=== PATIENT | male | born 1960 | race Caucasian/White ===

== ENCOUNTER 2017-04-17 17:44 | Emergency (ER) | payer OTHER ==
[~2017-04-17] VITALS: Ht 172.7 cm; Wt 61.5 kg
[~2017-04-17 17:44] MED LIST changes: -*ONDANSETRON 4 MG VIAL PERIprocedural Use ONLY ONE; -*morphine SULFATE 8 MG/ML PERIprocedure ONLY ONE; -BELLADONNA ALKALOIDS/OPIUM 60 MG SUPP RECTAL ONE; -CHLORHEXIDINE GLUCONATE 2 % 1 PACK (2 CLOTHS) TOPICAL PRN; -DEXAMETHASONE SOD PHOS 4 MG/ML VIAL ONE; -DO NOT ADM ANY ANTICOAGULANT DRUGS PRN; -FAMOTIDINE 20 MG/2 ML VIAL ONE; -INSULIN HUMAN REGULAR 1,000 UNITS/10 ML VIAL SQ PRN; -LACTATED RINGER'S 1000 ML INJ 1,000 ML IV ONE; -LACTATED RINGER'S 1000 ML IV PRN; -METOPROLOL TARTRATE 25 MG TAB PO PRN; -MIDAZOLAM HCL 2 MG/2 ML VIAL ONE; -NEOSTIGMINE 3 MG/3 ML SYR IV ONE; -ONDANSETRON HCL 4 MG/2 ML VIAL IV PUSH ONE; -ONDANSETRON HCL 4 MG/2 ML VIAL IV PUSH PRN; -PHENYLEPH/NS 1000 MCG/10 ML SYR IV ONE; -POVIDONE IODINE 5% (ANTISEPSIS KIT) 4 APPLICATIONS EACH NARE PRN; -PROPOFOL 200 MG/20 ML AMP IV ONE; -SODIUM CHLORID 0.9% 500 ML IV PRN; -ceFAZolin 1,000 MG/NS 100 ML IV SCH; -ePHEDrine/NS 25 MG/5 ML SYR IV ONE; -fentaNYL CITRATE 250 MCG/5 ML AMP ONE; -oxyCODONE/ACETAMINOPHEN 5 MG/325 MG TAB PO PRN
[2017-04-17 17:48] VITALS: BP 94/69; PULSE 116; RESP 20; TEMP 97.7; O2SAT 95
--- NOTE | 2017-04-17 17:55 | PD ---
Physical Exam Time Seen by Provider: 17:49 Narrative 57yo M requesting help to have his leg catheter bag put back on. He had a bladder mass removed today and said he was "half out of it" when they gave him instructions. He is also asking how to drain the urine from the bag. He has no other medical complaints. Patient seen in triage. VS reviewed. Awaiting bed placement. Data Data Last Documented VS Vital Signs Date Time Temp Pulse Resp B/P Pulse Ox O2 Delivery O2 Flow Rate FiO2 04/17/17 17:48 97.7 116 20 94/69 95 Room Air [facility] Supervised Visit with ZULEYKA: Salome Zhang Apr 17, 2017 17:55
--- NOTE | 2017-04-17 18:11 | PD ---
HPI Chief Complaint: Medical Clearance Time Seen by Provider: 18:07 Travel History International Travel<30 days: No Contact w/Intl Traveler<30days: No Traveled to known affect area: No History of Present Illness HPI 57-year-old male presents to the emergency department with problems with his Henderson catheter and bag. Patient had a urinary procedure this morning, with urinary tumor from his bladder. Patient states he does not recall any of the patient instructions for his Henderson catheter care at that time. He states he attempted to change the bag earlier to a larger leg bag, and was unable to place the Henderson back on. He is unsure how to drain the Henderson bag at this time. He has no other acute issues at this time. He has no known drug allergies. PFSH Past Medical History Cancer: No Cardiovascular Problems: No Diabetes: Yes (type II) Endocrine: No Genitourinary: Yes (bladder tumor) Hepatitis: No Hiatal Hernia: No Immune Disorder: No Musculoskeletal: No Neurologic: No Psychiatric: No Respiratory: No Thyroid Disease: No Past Surgical History Abdominal Surgery: Yes (pyloric stenosis at ) AICD: No Cardiac Surgery: No Ear Surgery: No Endocrine Surgery: No Eye Surgery: Yes (corrective cross eye, bilat cataract) Genitourinary Surgery: No Gynecologic Surgery: No Joint Replacement: No Oral Surgery: Yes (tonsillectomy) Pacemaker: No Thoracic Surgery: No Social History Alcohol Use: No Tobacco Use: No 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) Allergies-Medications (Allergen,Severity, Reaction): Coded Allergies: No Known Allergies (Unverified , 04/14/17) Reported Meds & Prescriptions Reported Meds & Active Scripts Active Belladonna-Opium Supp (Belladonna Alkaloids/Opium) 16.2-60 Mg Supp 1 Supp RECTAL BID PRN Percocet (Oxycodone-Acetaminophen) 5-325 mg Tab 1-2 Tab PO Q6H PRN Keflex (Cephalexin) 250 Mg Cap 250 Mg PO TID Lisinopril 10 Mg Tab 10 Mg PO DAILY Hydrochlorothiazide 25 Mg Tab 25 Mg PO DAILY Metformin (Metformin HCl) 500 Mg Tab 500 Mg PO BIDPC With meals Reported Cephalexin 500 Mg Cap 500 Mg PO Q6H Atorvastatin (Atorvastatin Calcium) 40 Mg Tab 40 Mg PO DAILY Review of Systems Except as stated in HPI: all other systems reviewed are Neg General / Constitutional: No: Fever Eyes: No: Visual changes HENT: No: Headaches Cardiovascular: No: Chest Pain or Discomfort Respiratory: No: Shortness of Breath Gastrointestinal: No: Abdominal Pain Genitourinary: No: Dysuria Musculoskeletal: No: Pain Skin: No Rash Neurologic: No: Weakness Psychiatric: No: Depression Endocrine: No: Polydipsia Hematologic/Lymphatic: No: Easy Bruising Physical Exam Narrative GENERAL: Patient is in no acute distress. SKIN: Warm and dry. Color normal. Normal turgor. HEAD: Atraumatic. Normocephalic. EYES: Pupils equal and round. No scleral icterus. No injection or drainage. ENT: No nasal bleeding or discharge. Mucous membranes pink and moist. Pharynx is clear. Airway is patent. NECK: Trachea midline. Supple nontender. CARDIOVASCULAR: Regular rate and rhythm. RESPIRATORY: No accessory muscle use. Clear to auscultation. Breath sounds equal bilaterally. MUSCULOSKELETAL: Extremities without clubbing, cyanosis, or edema. No obvious deformities. NEUROLOGICAL: Awake and alert. No obvious cranial nerve deficits. Motor grossly within normal limits. Five out of 5 muscle strength in the arms and legs. Normal speech. PSYCHIATRIC: Appropriate mood and affect; insight and judgment normal. Data Data Last Documented VS Vital Signs Date Time Temp Pulse Resp B/P Pulse Ox O2 Delivery O2 Flow Rate FiO2 04/17/17 17:48 97.7 116 20 94/69 95 Room Air MDM Medical Decision Making Medical Screen Exam Complete: Yes Emergency Medical Condition: No Differential Diagnosis Henderson catheter issue. Henderson bag issue. Need for patient counseling and training. Narrative Course Patient is instructed on proper use and drainage of Henderson catheter and leg bag. A medical screening exam was performed: At the time of evaluation the presenting medical condition was determined not to be of an emergent nature. The patient was given the option of receiving additional care, but declined. Patient was given options for additional community resources from which to obtain care. The Patient Has Been advised to seek medical attention for their presenting complaint. The patient has been advised to return to the ER at any time if an emergent condition develops. Condition: Stable Philippe Burdick Apr 17, 2017 18:11
[2017-05-03] MEDS ORDERED: VESI5TAB PO (11:56)
[2017-05-03] MEDS ORDERED: OXYB5TAB10 PO (16:53)
[2017-05-04] MEDS ORDERED: METF500T PO (17:53)
[2017-05-23] MEDS ORDERED: ATOR40TA16 PO (08:39)
== END 2017-04-17 18:13 | disposition left against medical advice (07) ==
LOC: NEPK 17:44
DX: T83.098A Other mechanical complication of other urinary catheter, initial encounter (principal); E11.9 Type 2 diabetes mellitus without complications; Z98.890 Other specified postprocedural states; Z87.448 Personal history of other diseases of urinary system; Z79.84 Long term (current) use of oral hypoglycemic drugs
CPT/HCPCS: 99281

== ENCOUNTER → 2017-04-17 | Day surgery (SDC) | payer OTHER ==
[~2017-04-17] VITALS: Ht 172.7 cm; Wt 61.8 kg
[~2017-04-17] MED LIST: *ONDANSETRON 4 MG VIAL PERIprocedural Use ONLY ONE; *morphine SULFATE 8 MG/ML PERIprocedure ONLY ONE; ATOR40TA16 PO; BELLADONNA ALKALOIDS/OPIUM 60 MG SUPP RECTAL ONE; BO60R RECTAL; CEPH-459 PO; CEPH500C PO; CHLORHEXIDINE GLUCONATE 2 % 1 PACK (2 CLOTHS) TOPICAL PRN; DEXAMETHASONE SOD PHOS 4 MG/ML VIAL ONE; DO NOT ADM ANY ANTICOAGULANT DRUGS PRN; FAMOTIDINE 20 MG/2 ML VIAL ONE; HYDR25TA5 PO; INSULIN HUMAN REGULAR 1,000 UNITS/10 ML VIAL SQ PRN; LACTATED RINGER'S 1000 ML INJ 1,000 ML IV ONE; LACTATED RINGER'S 1000 ML IV PRN; LISI10TA3 PO; METF500T PO; METOPROLOL TARTRATE 25 MG TAB PO PRN; MIDAZOLAM HCL 2 MG/2 ML VIAL ONE; NEOSTIGMINE 3 MG/3 ML SYR IV ONE; ONDANSETRON HCL 4 MG/2 ML VIAL IV PUSH ONE; ONDANSETRON HCL 4 MG/2 ML VIAL IV PUSH PRN; PERC5TAB12 PO; PHENYLEPH/NS 1000 MCG/10 ML SYR IV ONE; POVIDONE IODINE 5% (ANTISEPSIS KIT) 4 APPLICATIONS EACH NARE PRN; PROPOFOL 200 MG/20 ML AMP IV ONE; SODIUM CHLORID 0.9% 500 ML IV PRN; ceFAZolin 1,000 MG/NS 100 ML IV SCH; ePHEDrine/NS 25 MG/5 ML SYR IV ONE; fentaNYL CITRATE 250 MCG/5 ML AMP ONE; oxyCODONE/ACETAMINOPHEN 5 MG/325 MG TAB PO PRN
[2017-04-17 07:35] VITALS: BP 104/67; PULSE 66; RESP 18; TEMP 97.7; O2SAT 97
[2017-04-17 07:44] LABS: AUTOMATED NEUTROPHIL # 6.2 TH/MM3 (1.8-7.7); BASOPHIL % 0.3 % (0.0-2.0); EOSINOPHIL # 0.2 TH/MM3 (0-0.4); EOSINOPHIL % 2.5 % (0.0-4.0); HEMATOCRIT 41.7 % (39.0-51.0); HEMO FLAGS DIFF FINAL; LYMPH % 16.9 % (9.0-44.0); LYMPHOCYTE # 1.4 TH/MM3 (1.0-4.8); MEAN CELL VOLUME 91.5 FL (80.0-100.0); MEAN CORPUSCULAR HEMOGLOBIN 30.7 PG (27.0-34.0); MEAN CORPUSCULAR HGB CONC 33.5 % (32.0-36.0); MONO % 8.3 % (0.0-8.0); PLATELET COUNT 270 TH/MM3 (150-450); RED BLOOD COUNT 4.56 MIL/MM3 (4.50-5.90); RED CELL DISTRIBUTION WIDTH 13.7 % (11.6-17.2); WHITE BLOOD COUNT 8.6 TH/MM3 (4.0-11.0)
--- NOTE | 2017-04-17 11:53 | PD.OP ---
Operative Report Date of Surgery: Apr 17, 2017 Preoperative Diagnosis: (1) Bladder mass Postoperative Diagnosis: (1) Bladder mass Procedure: Cystoscopy and transurethral resection of 2 bladder tumors involving the left lateral wall measuring greater than 5 cm and approximately 3 cm respectively. Anesthesia: General Surgeon: Abdon Johnson Home Economics Expert(s): None Operation and Findings: Indication for procedure: Case of a pleasant 57-year-old gentleman with recent development gross hematuria. Workup included a CT scan that demonstrated at least one greater than 4 cm tumor involving the left bladder wall. Patient presents now for cystoscopy and possible TURBT. Operative procedure in detail: Patient was brought to the operating suite and placed supine on the OR table. Stent placement general endotracheal anesthesia. He was then repositioned in the dorsal lithotomy position and prepped and draped in normal sterile fashion. After appropriate timeout was undertaken I proceeded with cystoscopic evaluation utilizing the rigid cystoscope with the 30 lens and 22 German sheath. The urethra was patent without stricture formation. The prostatic urethra was not obstructing. Further passive cystoscope within the urinary bladder revealed both right and left ureteral orifices to be in correct anatomic position effluxing clear yellow urine. There were 2 bladder tumors noted involving the left lateral wall one just superior to the left ureteral orifice greater than 5 cm in size and a second tumor present in a more cephalad direction also involving the left wall measuring approximately 3 cm. The resectoscope with the 24 German cutting loop was utilized as well as normal saline irrigation and the bipolar cautery device. The patient underwent transrectal resection of both of these tumors. The tumors resected down to the base. The uric evacuator was utilized to collect specimen and sent off to pathology. The base of both tumors was fulgurated with coagulation current. An 18 German 10 cc Henderson catheter was then placed and connected to gravity drainage. The patient tolerated the procedures without complications and was transferred to the PACU in satisfactory condition. Abdon Johnson MD Apr 17, 2017 11:53
[2017-04-17 14:29] VITALS: BP 113/74; PULSE 86; RESP 18; TEMP 97.5; O2SAT 97
--- NOTE | 2017-04-17 16:27 | EKG ---
Date Performed: 04/17/2017 Time Performed: 06:45:59 PTAGE: 57 years EKG: Sinus rhythm MODERATE INTRAVENTRICULAR CONDUCTION DELAY BORDERLINE ECG NO PREVIOUS TRACING DOCTOR: May Carroll Interpretating Date/Time 04/17/2017 16:25:28
== END | disposition home or self-care (01) ==
LOC: HSDC 05:47
PROVIDERS: ATTEND Urology
DX: C67.2 Malignant neoplasm of lateral wall of bladder (principal); I10 Essential (primary) hypertension; E11.9 Type 2 diabetes mellitus without complications; E78.5 Hyperlipidemia, unspecified; F17.210 Nicotine dependence, cigarettes, uncomplicated; Z01.810 Encounter for preprocedural cardiovascular examination; Z01.818 Encounter for other preprocedural examination
CPT/HCPCS: 00912; 52235; 85025; 88307; 93005; J0690; J1100; J2250; J2270; J2370; J2405; J2710; J3010; J7120

== ENCOUNTER → 2017-07-10 | Day surgery (SDC) | payer OTHER ==
[~2017-07-10] VITALS: Ht 172.7 cm; Wt 63.1 kg
[~2017-07-10] MED LIST changes: -BO60R RECTAL; -CEPH500C PO; +CHLORHEXIDINE GLUCONATE 2 % 1 PACK (2 CLOTHS) TOPICAL PRN; +DEXAMETHASONE SOD PHOS 4 MG/ML VIAL IV ONE; +DO NOT ADM ANY ANTICOAGULANT DRUGS PRN; +INSULIN HUMAN REGULAR 1,000 UNITS/10 ML VIAL SQ PRN; +LACTATED RINGER'S 1000 ML IV PRN; +LIDOCAINE HCL 1% PF 5 ML AMPULE OTHER ONE; +METOPROLOL TARTRATE 25 MG TAB PO PRN; +ONDANSETRON HCL 4 MG/2 ML VIAL IV PUSH ONE; +ONDANSETRON HCL 4 MG/2 ML VIAL IV PUSH PRN; +OXYB5TAB8 PO; +POVIDONE IODINE 5% (ANTISEPSIS KIT) 4 APPLICATIONS EACH NARE PRN; +PROPOFOL 200 MG/20 ML AMP IV ONE; +SODIUM CHLORID 0.9% 500 ML IV PRN; +ceFAZolin 1,000 MG/NS 100 ML IV SCH; +ePHEDrine/NS 25 MG/5 ML SYR IV ONE; +oxyCODONE/ACETAMINOPHEN 5 MG/325 MG TAB PO PRN
[2017-07-10 06:56] LABS: AUTOMATED NEUTROPHIL # 3.9 TH/MM3 (1.8-7.7); BASOPHIL # 0.1 TH/MM3 (0-0.2); EOSINOPHIL # 0.4 TH/MM3 (0-0.4); EOSINOPHIL % 5.8 % (0.0-4.0); HEMATOCRIT 41.6 % (39.0-51.0); HEMO FLAGS DIFF FINAL; LYMPH % 23.3 % (9.0-44.0); LYMPHOCYTE # 1.5 TH/MM3 (1.0-4.8); MEAN CELL VOLUME 91.9 FL (80.0-100.0); MEAN CORPUSCULAR HEMOGLOBIN 31.4 PG (27.0-34.0); MEAN CORPUSCULAR HGB CONC 34.2 % (32.0-36.0); MONO % 10.1 % (0.0-8.0); NEUT % 59.8 % (16.0-70.0); PLATELET COUNT 284 TH/MM3 (150-450); RED BLOOD COUNT 4.53 MIL/MM3 (4.50-5.90); RED CELL DISTRIBUTION WIDTH 13.7 % (11.6-17.2); WHITE BLOOD COUNT 6.5 TH/MM3 (4.0-11.0)
--- NOTE | 2017-07-10 10:03 | PD.OP ---
Operative Report Date of Surgery: Jul 10, 2017 Preoperative Diagnosis: (1) History of bladder cancer Postoperative Diagnosis: (1) Bladder mass Procedure: Cystoscopy with bladder biopsy and fulguration Anesthesia: General Surgeon: Abdon Johnson Pigment Mixer(s): None Operation and Findings: Indication for procedure: Case of a pleasant 57-year-old gentleman who is status post transient resection of 2 bladder tumors involving the left wall several months ago. The final pathology demonstrated noninvasive low-grade urothelial cancer. Patient presents now for cystoscopy with bladder biopsies. Operative procedure in detail: Patient was brought to the operating suite and placed supine on the or table. He was then placed under general anesthesia. He was then repositioned in the dorsal lithotomy position and prepped and draped in normal sterile fashion. After an appropriate timeout was undertaken proceeded with cystoscopic evaluation utilizing the rigid cystoscope with the 30 lens and 20 British sheath. The urethra was patent without stricture formation , the prostatic urethra was nonobstructing, and further passive cystoscope within the urinary bladder revealed both right and left ureteral orifice these to be effluxing clear yellow urine. Careful inspection of the bladder was made and there was one small area involving the left lateral wall superior and lateral to the left ureteral orifice with regrowth of tissue suspicious for bladder cancer. The cup biopsy forceps utilized and 2 biopsies were taken from this area. The area was then fulgurated with the Bugbee electrode. The bladder was drained of all irrigant fluid and the cystoscope withdrawn. A 16 British 10 cc Henderson catheter was then placed and connected to gravity drainage. The patient tolerated the procedures without complications and was transferred to the PACU in satisfactory condition. Abdon Johnson MD Jul 10, 2017 10:03
[2017-07-10 11:58] VITALS: BP 122/83; PULSE 74; RESP 18; TEMP 97.7; O2SAT 98
== END | disposition home or self-care (01) ==
LOC: HSDC 05:44
PROVIDERS: ATTEND Urology
DX: C67.2 Malignant neoplasm of lateral wall of bladder (principal); I10 Essential (primary) hypertension; E11.9 Type 2 diabetes mellitus without complications; E78.5 Hyperlipidemia, unspecified; K57.90 Diverticulosis of intestine, part unspecified, without perforation or abscess without bleeding; Z01.818 Encounter for other preprocedural examination
CPT/HCPCS: 00910; 52204; 85025; 88305; J0690; J1100; J2405; J3010; J7120

== ENCOUNTER → 2018-01-01 | Day surgery (SDC) | payer OTHER ==
[~2018-01-01] VITALS: Ht 175.3 cm; Wt 64.0 kg
[~2018-01-01] MED LIST changes: +IBUP200T47 PO; -INSULIN HUMAN REGULAR 1,000 UNITS/10 ML VIAL SQ PRN; -LIDOCAINE HCL 1% PF 5 ML AMPULE OTHER ONE; +LIDOCAINE HCL 1% PF 5 ML SYRINGE OTHER ONE; +ONDANSETRON HCL 4 MG/2 ML VIAL IV ONE; -ONDANSETRON HCL 4 MG/2 ML VIAL IV PUSH ONE; -OXYB5TAB8 PO; +PHENYLEPH/NS 1000 MCG/10 ML SYR IV ONE; +TAMS0.4C4 PO; -ePHEDrine/NS 25 MG/5 ML SYR IV ONE; +ePHEDrine/NS 25 MG/5 ML SYRINGE IV ONE
[2018-01-01 09:44] LABS: AUTOMATED NEUTROPHIL # 5.5 TH/MM3 (1.8-7.7); BASOPHIL # 0.1 TH/MM3 (0-0.2); BASOPHIL % 0.9 % (0.0-2.0); EOSINOPHIL # 0.2 TH/MM3 (0-0.4); EOSINOPHIL % 2.1 % (0.0-4.0); HEMATOCRIT 43.1 % (39.0-51.0); LYMPH % 13.2 % (9.0-44.0); MEAN CELL VOLUME 88.4 FL (80.0-100.0); MEAN CORPUSCULAR HEMOGLOBIN 30.8 PG (27.0-34.0); MEAN CORPUSCULAR HGB CONC 34.9 % (32.0-36.0); MEAN PLATELET VOLUME 7.1 FL (7.0-11.0); MONO % 8.6 % (0.0-8.0); MONOCYTE # 0.6 TH/MM3 (0-0.9); NEUT % 75.2 % (16.0-70.0); PLATELET COUNT 286 TH/MM3 (150-450); RED BLOOD COUNT 4.87 MIL/MM3 (4.50-5.90); WHITE BLOOD COUNT 7.4 TH/MM3 (4.0-11.0)
--- NOTE | 2018-01-01 14:07 | PD.OP ---
Operative Report Date of Surgery: Jan 01, 2018 Preoperative Diagnosis: (1) Bladder cancer Postoperative Diagnosis: (1) Bladder cancer Procedure: Cystoscopy and transurethral resection of 2 small superficial bladder tumors measuring less than 1 cm each Anesthesia: General Surgeon: Abdon Johnson Esthetics Instructor(s): None Operation and Findings: Indication for procedures: Case of a pleasant 57-year-old gentleman with history bladder cancer who status post transurethral resection of 2 low-grade lesions in April 2017 and subsequent resection of a single recurrent lesion in July 2017 which was once again low-grade. Recent cystoscopic evaluation demonstrated at least one less than 1 cm bladder tumor involving the right posterior wall. Patient presents today for cystoscopy and transurethral resection. Operative procedure in detail: Patient was brought to the operating room suite placed supine on the OR table. He was then placed under general anesthesia. He was then repositioned in the dorsolithotomy position and prepped and draped in normal sterile fashion. After appropriate timeout was undertaken I proceeded with rigid cystoscopy utilizing the 20 Bhutanese sheath and 30 lens. The urethra was patent without stricture formation, the prostate was not obstructing and further passive cystoscope within the urinary bladder revealed both right and left ureteral orifices to be in correct anatomic position draining clear yellow urine. The previously seen less than 1 cm tumor involving the right posterior wall was once again visualized. The tumor itself appeared to be very superficial nature. Further inspection demonstrated a secondary lesion measuring approximately 4 mm involving the posterior wall in the midline superior to the first lesion. The cystoscope was exchanged for the resectoscope with the cutting loop and both of these lesions were fulgurated with coagulation current. Both lesions were very superficial nature and were markedly desiccated with coagulation current thus no specimen was sent off to the lab. The bladder was drained of all irrigant fluid and the resectoscope was withdrawn. The patient tolerated the procedures without complications and was transferred to the PACU in satisfactory condition. Since patient is having ongoing recurrent lesions I will discuss more aggressive management with intravesical BCG therapy during his postoperative visit. Abdon Johnson MD Jan 01, 2018 14:07
[2018-01-01 15:30] VITALS: BP 115/69; PULSE 69; RESP 16; O2SAT 96
== END | disposition home or self-care (01) ==
LOC: HSDC 08:21
PROVIDERS: ATTEND Urology
DX: C67.9 Malignant neoplasm of bladder, unspecified (principal); I10 Essential (primary) hypertension; E78.5 Hyperlipidemia, unspecified; E11.9 Type 2 diabetes mellitus without complications; Z79.84 Long term (current) use of oral hypoglycemic drugs
CPT/HCPCS: 00912; 52234; 85025; J1100; J2370; J2405; J3010; J7120

== ENCOUNTER 2018-01-29 18:23 | Emergency (ER) | payer OTHER ==
[~2018-01-29] VITALS: Ht 175.3 cm; Wt 65.0 kg
[~2018-01-29 18:23] MED LIST changes: -CHLORHEXIDINE GLUCONATE 2 % 1 PACK (2 CLOTHS) TOPICAL PRN; -DEXAMETHASONE SOD PHOS 4 MG/ML VIAL IV ONE; -DO NOT ADM ANY ANTICOAGULANT DRUGS PRN; -LACTATED RINGER'S 1000 ML IV PRN; -LIDOCAINE HCL 1% PF 5 ML SYRINGE OTHER ONE; -METOPROLOL TARTRATE 25 MG TAB PO PRN; -ONDANSETRON HCL 4 MG/2 ML VIAL IV ONE; -ONDANSETRON HCL 4 MG/2 ML VIAL IV PUSH PRN; -PHENYLEPH/NS 1000 MCG/10 ML SYR IV ONE; -POVIDONE IODINE 5% (ANTISEPSIS KIT) 4 APPLICATIONS EACH NARE PRN; -PROPOFOL 200 MG/20 ML AMP IV ONE; -SODIUM CHLORID 0.9% 500 ML IV PRN; -ceFAZolin 1,000 MG/NS 100 ML IV SCH; -ePHEDrine/NS 25 MG/5 ML SYRINGE IV ONE; -oxyCODONE/ACETAMINOPHEN 5 MG/325 MG TAB PO PRN
[2018-01-29 18:25] VITALS: BP 161/96; PULSE 83; RESP 16; TEMP 97.5; O2SAT 97
[2018-01-29] MEDS ORDERED: ALUMINUM/MAGNESIUM/SIMETH 30 ML CUP PO ONE (19:00)
[2018-01-29] MEDS ORDERED: PANTOPRAZOLE SOD 40 MG DELAYED RELEASE TAB PO ONE (19:00)
[2018-01-29] MEDS ORDERED: ATROPINE/SCOPOLAM/HYOSCYAM/PB ELIXIR 10 ML CUP PO ONE (19:00)
--- NOTE | 2018-01-29 19:08 | PD ---
HPI Chief Complaint: GI Complaint Time Seen by Provider: 18:48 Travel History International Travel<30 days: No Contact w/Intl Traveler<30days: No Traveled to known affect area: No History of Present Illness HPI 57-year-old male complains of epigastric spasm. Patient states that he has intermittent epigastric discomfort indigestion feeling and spasm for the past 4 days. Patient states that the symptoms lasted an hour 3 days ago, 5 hours 3 days ago. Patient was feeling good yesterday. Patient is not having epigastric discomfort with tightness and spasm to the epigastric area since lunchtime today. Patient states that he took several tablets of Tums without relief. Patient stated he vomited this afternoon. Patient denies any diarrhea. Patient denies any coughing congestion fever chills. Patient denies any dysuria frequency. Patient denies any history of CAD. Patient has history of hypertension, diabetes, hyperlipidemia. Patient quit smoking last year. Patient has family history of heart disease. Patient has history of bladder cancer. Patient status post transurethral resection of 2 bladder tumors in April of this year. 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 Patient is pending bladder treatment tomorrow. Patient also has history of pyloric stenosis status post surgery when he was an . PFSH Past Medical History Cancer: Yes (HX BLADDER CA) Cardiovascular Problems: No Diabetes: Yes Endocrine: No Genitourinary: Yes (bladder tumor) Hepatitis: No Hiatal Hernia: No Immune Disorder: No Musculoskeletal: No (LOW BACK PAIN) Neurologic: No Psychiatric: No Reproductive: No Respiratory: No Thyroid Disease: No Past Surgical History Abdominal Surgery: Yes (pyloric stenosis at ) AICD: No Cardiac Surgery: No Ear Surgery: No Endocrine Surgery: No Eye Surgery: Yes (corrective cross eye, bilat cataract) Genitourinary Surgery: Yes (BLADDER TUMOR REMOVED X2) Gynecologic Surgery: No Joint Replacement: No Oral Surgery: Yes (tonsillectomy) Pacemaker: No Thoracic Surgery: No Social History Alcohol Use: No Tobacco Use: No 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) Allergies-Medications (Allergen,Severity, Reaction): Coded Allergies: No Known Allergies (Verified Allergy, Unknown, 01/29/18) Reported Meds & Prescriptions Reported Meds & Active Scripts Active Protonix (Pantoprazole Sodium) 20 Mg Tab 20 Mg PO DAILY Hydrochlorothiazide 25 Mg Tab 25 Mg PO DAILY Atorvastatin (Atorvastatin Calcium) 40 Mg Tab 40 Mg PO DAILY Metformin (Metformin HCl) 500 Mg Tab 500 Mg PO BIDPC With meals Lisinopril 10 Mg Tab 10 Mg PO DAILY Reported Ibuprofen 200 Mg Tab 400 Mg PO BID Tamsulosin (Tamsulosin HCl) 0.4 Mg Cap 0.4 Mg PO HS Review of Systems General / Constitutional: No: Fever Eyes: No: Visual changes HENT: No: Headaches Cardiovascular: No: Chest Pain or Discomfort Respiratory: No: Shortness of Breath Gastrointestinal: Positive: Abdominal Pain Genitourinary: No: Dysuria Musculoskeletal: No: Pain Skin: No Rash Neurologic: No: Weakness Psychiatric: No: Depression Endocrine: No: Polydipsia Hematologic/Lymphatic: No: Easy Bruising Physical Exam Narrative GENERAL: Well-nourished, well-developed patient. SKIN: Focused skin assessment warm/dry. HEAD: Normocephalic. EYES: No scleral icterus. No injection or drainage. NECK: Supple, trachea midline. No JVD or lymphadenopathy. CARDIOVASCULAR: Regular rate and rhythm without murmurs, gallops, or rubs. RESPIRATORY: Breath sounds equal bilaterally. No accessory muscle use. GASTROINTESTINAL: Abdomen soft, nondistended. Mild tenderness on palpation epigastric area. No rebound tenderness. No mass. MUSCULOSKELETAL: No cyanosis, or edema. BACK: Nontender without obvious deformity. No CVA tenderness. Neurologic exam normal. Data Data Last Documented VS Vital Signs Date Time Temp Pulse Resp B/P (MAP) Pulse Ox O2 Delivery O2 Flow Rate FiO2 01/29/18 19:45 18 97 Room Air 01/29/18 18:25 97.5 83 161/96 (117) Orders Orders Electrocardiogram (01/29/18 19:00) Complete Blood Count With Diff (01/29/18 19:00) Comprehensive Metabolic Panel (01/29/18 19:00) Creatine Kinase (Cpk) (01/29/18 19:00) Troponin I (01/29/18 19:00) Prothrombin Time / Inr (Pt) (01/29/18 19:00) Act Partial Throm Time (Ptt) (01/29/18 19:00) Lipase (01/29/18 19:00) Urinalysis - C+S If Indicated (01/29/18 19:00) Thyroid Stimulating Hormone (01/29/18 19:00) Chest, Single Ap (01/29/18 19:00) Iv Access Insert/Monitor (01/29/18 19:00) Ecg Monitoring (01/29/18 19:00) Oximetry (01/29/18 19:00) Pantoprazole (Protonix) (01/29/18 19:00) Al-Mag Hy-Si 40-40-4 Mg/Ml Liq (Mag-Al P (01/29/18 19:00) Ozedb-Eqesin-Wsofec-Pb Liq ( Liq (01/29/18 19:00) Labs Laboratory Tests Test 01/29/18 19:30 01/29/18 19:36 01/29/18 20:15 White Blood Count 7.8 TH/MM3 Red Blood Count 4.83 MIL/MM3 Hemoglobin 14.7 GM/DL Hematocrit 43.3 % Mean Corpuscular Volume 89.6 FL Mean Corpuscular Hemoglobin 30.5 PG Mean Corpuscular Hemoglobin Concent 34.0 % Red Cell Distribution Width 13.9 % Platelet Count 302 TH/MM3 Mean Platelet Volume 7.2 FL Neutrophils (%) (Auto) 69.4 % Lymphocytes (%) (Auto) 18.8 % Monocytes (%) (Auto) 8.8 % Eosinophils (%) (Auto) 2.3 % Basophils (%) (Auto) 0.7 % Neutrophils # (Auto) 5.4 TH/MM3 Lymphocytes # (Auto) 1.5 TH/MM3 Monocytes # (Auto) 0.7 TH/MM3 Eosinophils # (Auto) 0.2 TH/MM3 Basophils # (Auto) 0.1 TH/MM3 CBC Comment DIFF FINAL Differential Comment Blood Urea Nitrogen 25 MG/DL Creatinine 1.04 MG/DL Random Glucose 121 MG/DL Total Protein 7.1 GM/DL Albumin 4.0 GM/DL Calcium Level 9.4 MG/DL Alkaline Phosphatase 80 U/L Aspartate Amino Transf (AST/SGOT) 18 U/L Alanine Aminotransferase (ALT/SGPT) 35 U/L Total Bilirubin 0.4 MG/DL Sodium Level 136 MEQ/L Potassium Level 4.1 MEQ/L Chloride Level 99 MEQ/L Carbon Dioxide Level 28.8 MEQ/L Anion Gap 8 MEQ/L Estimat Glomerular Filtration Rate 74 ML/MIN Total Creatine Kinase 211 U/L Troponin I LESS THAN 0.02 NG/ML Lipase 106 U/L Thyroid Stimulating Hormone 3rd Gen 3.320 uIU/ML Urine Color YELLOW Urine Turbidity CLEAR Urine pH 6.0 Urine Specific [place] 1.021 Urine Protein TRACE mg/dL Urine Glucose (UA) NEG mg/dL Urine Ketones NEG mg/dL Urine Occult Blood NEG Urine Nitrite NEG Urine Bilirubin NEG Urine Urobilinogen LESS THAN 2.0 MG/DL Urine Leukocyte Esterase NEG Urine RBC 3 /hpf Urine WBC 1 /hpf Urine Hyaline Casts 2 /lpf Microscopic Urinalysis Comment CULT NOT INDICATED MDM Medical Decision Making Medical Screen Exam Complete: Yes Emergency Medical Condition: Yes Interpretation(s) Last Impressions Chest X-Ray 01/29/181899 Signed Impressions: CONCLUSION: Minimal basilar atelectasis. Calcified granuloma upper left lung. Rib deformiti es upper right chest. 2053 PM. CBC within normal limits. BUN 25. Cardiac enzymes are normal. UA is negative. Differential Diagnosis Differential diagnosis including gastritis, PUD, pancreatitis, colitis, angina, ID, PE, pneumothorax. Narrative Course 57-year-old male with epigastric discomfort. Diagnosis Primary Impression: Gastritis Qualified Codes: K29.00 - Acute gastritis without bleeding Patient Instructions: General Instructions Additional Instructions: Protonix as directed. Follow-up with personal physician. Return if worse. Advised patient to follow-up with personal physician for stress test and equipment analyst follow-up. Med/Other Pt SpecificInfo: Prescription(s) given Scripts Pantoprazole (Protonix) 20 Mg Tab 20 MG PO DAILY for Reflux, #30 TAB 0 Refills Prov: Darion Patten MD 01/29/18 Disposition: 01 DISCHARGE HOME Condition: Stable Darion Patten MD January 29, 2018 19:08
[2018-01-29 19:45] VITALS: RESP 18; O2SAT 97
[2018-01-29 19:47] LABS: AUTOMATED NEUTROPHIL # 5.4 TH/MM3 (1.8-7.7); BASOPHIL # 0.1 TH/MM3 (0-0.2); BASOPHIL % 0.7 % (0.0-2.0); EOSINOPHIL # 0.2 TH/MM3 (0-0.4); EOSINOPHIL % 2.3 % (0.0-4.0); HEMATOCRIT 43.3 % (39.0-51.0); HEMOGLOBIN 14.7 GM/DL (13.0-17.0); LYMPH % 18.8 % (9.0-44.0); LYMPHOCYTE # 1.5 TH/MM3 (1.0-4.8); MEAN CELL VOLUME 89.6 FL (80.0-100.0); MEAN CORPUSCULAR HEMOGLOBIN 30.5 PG (27.0-34.0); MEAN PLATELET VOLUME 7.2 FL (7.0-11.0); MONO % 8.8 % (0.0-8.0); MONOCYTE # 0.7 TH/MM3 (0-0.9); NEUT % 69.4 % (16.0-70.0); PLATELET COUNT 302 TH/MM3 (150-450); RED BLOOD COUNT 4.83 MIL/MM3 (4.50-5.90); RED CELL DISTRIBUTION WIDTH 13.9 % (11.6-17.2); WHITE BLOOD COUNT 7.8 TH/MM3 (4.0-11.0)
--- NOTE | 2018-01-29 19:57 | RADRPT ---
EXAM DATE: 01/29/2018 7:31 PM EDT AGE/SEX: 57 years / Male INDICATIONS: Chest discomfort. CLINICAL DATA: This is the patient's initial encounter. Patient reports that signs and symptoms have been present for 1 day and indicates a pain score of 4/10. MEDICAL/SURGICAL HISTORY: Hypertension. Diabetes mellitus type II. None. COMPARISON: No prior [facility] exams available for comparison. FINDINGS: Minimal basilar atelectasis. No effusion. Calcified granuloma upper left lung. Mild scoliosis. Heart size within normal limits. CONCLUSION: Minimal basilar atelectasis. Calcified granuloma upper left lung. Rib deformities upper right chest. Electronically signed by: Parveen Norris MD 01/29/2018 7:56 PM EDT
[2018-01-29 19:59] LABS: BILIRUBIN, URINE NEG (NEG); BLOOD, URINE NEG (NEG); GLUCOSE,URINE NEG (NEG); HYALINE CAST, URINE 2 /lpf (RARE); KETONE, URINE NEG (NEG); NITRITE,URINE NEG (NEG); URINE COLOR YELLOW (YELLW/STRAW); URINE LEUKOCYTE ESTERASE NEG (NEG)
[2018-01-29 20:08] LABS: ALT (GPT) 35 U/L (12-78)
[2018-01-29 20:17] LABS: ALKALINE PHOSPHATASE 80 U/L (45-117); TOTAL BILIRUBIN ADULT 0.4 MG/DL (0.2-1.0); TOTAL PROTEIN 7.1 GM/DL (6.4-8.2); TROPONIN I LESS THAN 0.02 NG/ML (0.02-0.05)
[2018-01-29 20:23] LABS: AST (GOT) 18 U/L (15-37); BICARBONATE 28.8 MEQ/L (21.0-32.0); BLOOD UREA NITROGEN 25 MG/DL (7-18); CALCIUM 9.4 MG/DL (8.5-10.1); CHLORIDE 99 MEQ/L (98-107); CREATININE 1.04 MG/DL (0.60-1.30); GLOMERULAR FILTRATION RATE 74 ML/MIN (>89); GLUCOSE,RANDOM 121 MG/DL (74-106); SODIUM (NA) 136 MEQ/L (136-145)
[2018-01-29] MEDS ORDERED: PANT20 PO (21:00)
--- NOTE | 2018-01-30 14:05 | EKG ---
Date Performed: 01/29/2018 Time Performed: 19:33:15 PTAGE: 57 years EKG: Sinus rhythm NORMAL ECG NO PREVIOUS TRACING Since the previous tracing, no significant change noted DOCTOR: Bipin Valentin Interpretating Date/Time 01/30/2018 14:02:03
== END 2018-01-29 21:14 | disposition home or self-care (01) ==
LOC: NEPD 18:23
DX: K29.00 Acute gastritis without bleeding (principal); E11.9 Type 2 diabetes mellitus without complications; E78.5 Hyperlipidemia, unspecified; I10 Essential (primary) hypertension; Z85.51 Personal history of malignant neoplasm of bladder; Z87.891 Personal history of nicotine dependence
CPT/HCPCS: 71045; 80053; 81001; 82550; 83690; 84443; 84484; 85025; 85610; 85730; 93005